=== PATIENT | male | born 1930 | race African-American/Black ===

== ENCOUNTER 2018-06-01 10:56 | Emergency (ER) | payer OTHER ==
[~2018-06-01] VITALS: Ht 182.9 cm; Wt 54.4 kg
[2018-06-01 10:56] VITALS: BP 0/0
[2018-06-01] MEDS ORDERED: EPINEPHrine HCL 1 MG/10 ML SYRG IV ONE (10:57)
[2018-06-01] MEDS ORDERED: CALCIUM CHLOR(10%) 100MG/ML 10ML SYRINGE IV ONE (10:57)
[2018-06-01] MEDS ORDERED: SODIUM BICARBONATE 8.4% INJ 50ML SYRINGE IV ONE (10:57)
[2018-06-01] MEDS ORDERED: SODIUM BICARBONATE 8.4% INJ 50ML SYRINGE ONE (11:04)
== END 2018-06-01 13:28 | disposition expired ==
LOC: ER 10:56 → EDBD 10:56 → ER 13:28
DX: I46.9 Cardiac arrest, cause unspecified (principal)
CPT/HCPCS: 31500; 92950; 99291; J0171